=== PATIENT | female | born 1945 | race Caucasian/White ===

== ENCOUNTER → 2017-04-02 | Outpatient (CLI) | payer OTHER | LOC: FIMAGING 13:36 | PROVIDERS: ATTEND Neurological Surgery | DX: M48.02 Spinal stenosis, cervical region (principal); M50.31 Other cervical disc degeneration, high cervical region; M99.71 Connective tissue and disc stenosis of intervertebral foramina of cervical region ==

== ENCOUNTER → 2017-06-10 | Outpatient (CLI) | payer OTHER | LOC: FIMAGING 12:56 | PROVIDERS: ATTEND Physician Assistant | DX: Z98.1 Arthrodesis status (principal); M50.31 Other cervical disc degeneration, high cervical region ==

== ENCOUNTER → 2017-06-28 | Outpatient (CLI) | payer OTHER ==
[~2017-06-28] MED LIST: GADOBUTROL 10 ML VIAL IVP ONE
== END ==
LOC: FIMAGING 15:02
PROVIDERS: ATTEND Psychiatry & Neurology Neurology
DX: R29.898 Other symptoms and signs involving the musculoskeletal system (principal); R93.0 Abnormal findings on diagnostic imaging of skull and head, not elsewhere classified
CPT/HCPCS: 70553; A9585

== ENCOUNTER → 2017-12-05 | Outpatient (CLI) | payer OTHER | LOC: FIMAGING 13:48 | PROVIDERS: ATTEND Physician Assistant | DX: Z98.1 Arthrodesis status (principal) ==

== ENCOUNTER → 2018-01-14 | Outpatient (CLI) | payer OTHER | LOC: FIMAGING 10:11 | PROVIDERS: ATTEND Psychiatry & Neurology Neurology | DX: R90.82 White matter disease, unspecified (principal) ==

== ENCOUNTER → 2018-06-02 | Outpatient (CLI) | payer OTHER | LOC: CIMAGING 16:45 | PROVIDERS: ATTEND Internal Medicine Pulmonary Disease | DX: R91.8 Other nonspecific abnormal finding of lung field (principal); R06.00 Dyspnea, unspecified; R09.02 Hypoxemia | CPT/HCPCS: 71046-PO ==

== ENCOUNTER → 2018-11-26 | Outpatient (CLI) | payer OTHER | LOC: FLAB 16:21 | PROVIDERS: ATTEND Physician Assistant | DX: M48.02 Spinal stenosis, cervical region (principal); M47.812 Spondylosis without myelopathy or radiculopathy, cervical region; Z98.1 Arthrodesis status ==